=== PATIENT | male | born 1995 | race Caucasian/White ===

== ENCOUNTER 2016-07-13 12:58 | Inpatient (IN) | payer OTHER ==
[~2016-07-13] VITALS: Ht 170.2 cm; Wt 66.8 kg
[2016-07-13 14:43] LABS: HEMATOCRIT 42.7 % (38.0-50.0); MCH 28.4 PG (29.0-34.0); MCHC 35.8 G/DL (30.0-36.0); MCV 79.2 FL (86-99); MEAN PLAT.VOLUME 10.7 uM^3 (9.0-12.4); PLATELET COUNT 277 K/uL (156-360); RBC DIS.WIDTH-CV 12.5 % (11.8-14.6); RBC DIS.WIDTH-SD 35.9 % (39-53); RED BLOOD COUNT 5.39 M/uL (4.00-5.50); WHITE BLOOD COUNT 10.6 K/uL (4.1-10.2)
[2016-07-13 14:44] LABS: CHLORIDE 107 mEq/L (99-109); POTASSIUM 3.9 mEq/L (3.7-5.4); SODIUM 140 mEq/L (136-147)
[2016-07-13 14:45] LABS: GLUCOSE 370 mg/dL (70-99)
[2016-07-13 14:47] LABS: ANION GAP 10 MEQ/L (2-14)
[2016-07-13 14:49] LABS: GFR ESTIMATE (CALCULATED) > 59 mL/min/; SERUM ETHYL ALCOHOL < 10 mg/dL
[2016-07-13 14:50] LABS: UREA NITROGEN (BUN) 12 mg/dL (9-23)
[2016-07-13] MEDS ORDERED: INSULIN PUMP SCCONT (16:43)
[2016-07-13 18:29] LABS: POINT-OF-CARE METER ID UU13113702
[2016-07-13 18:45] LABS: AMPHETAMINE NEGATIVE (500 ng/mL); BARBITURATES NEGATIVE (200 ng/mL); BENZODIAZEPINES NEGATIVE (150 ng/mL); COCAINE NEGATIVE (150 ng/mL); INTERNAL CONTROLS VALID? YES; METHADONE NEGATIVE (200 ng/mL); METHAMPHETAMINE NEGATIVE (500 ng/mL); OPIATES (MORPHINE) NEGATIVE (100 ng/mL); OXYCODONE NEGATIVE (100 ng/mL); PHENCYCLIDINE NEGATIVE (25 ng/mL); PROPOXYPHENE NEGATIVE (300 ng/mL); THC CANNABINOIDS NEGATIVE (50 ng/mL); TRICYCLIC ANTIDEPRESSANTS NEGATIVE (300 ng/mL)
[2016-07-13 19:12] LABS: POINT-OF-CARE METER ID UU13113702; POINT-OF-CARE USER ID 515033160
[2016-07-13 20:28] VITALS: BP 110/63
[2016-07-14 06:43] LABS: POINT-OF-CARE METER ID UU13113830; POINT-OF-CARE USER ID BHSMSB
[2016-07-14 08:05] VITALS: BP 109/59
[2016-07-14 08:24] LABS: POINT-OF-CARE METER ID UU13113830; POINT-OF-CARE USER ID BHSMSB
[2016-07-14 09:22] LABS: POINT-OF-CARE METER ID UU13113830
[2016-07-14 10:16] LABS: POINT-OF-CARE METER ID UU13113830
[2016-07-14 12:14] LABS: POINT-OF-CARE METER ID UU13113830
[2016-07-14 15:55] VITALS: BP 116/71
[2016-07-14 16:42] LABS: POINT-OF-CARE METER ID UU13113830
[2016-07-15 06:17] LABS: POINT-OF-CARE METER ID UU13113830; POINT-OF-CARE USER ID BHSMEW
[2016-07-15 07:52] VITALS: BP 119/76
[2016-07-15 10:21] LABS: Estimated Average Glucose 352 mg/dL (70-123); HEMOGLOBIN A1c (GLYCOHEMOGLOB) 13.9 % HGB (Below 5.7)
[2016-07-15 10:52] LABS: POINT-OF-CARE METER ID UU13113830
[2016-07-15 11:52] LABS: POINT-OF-CARE METER ID UU13113830; POINT-OF-CARE USER ID BHSTSA
[2016-07-15 15:29] VITALS: BP 115/74
[2016-07-15 16:45] LABS: POINT-OF-CARE METER ID UU13113830; POINT-OF-CARE USER ID BHSTSA
[2016-07-15 21:21] LABS: POINT-OF-CARE METER ID UU13113830; POINT-OF-CARE USER ID ENVTLS63
[2016-07-16 06:14] LABS: POINT-OF-CARE METER ID UU13113830; POINT-OF-CARE USER ID ENVTLS63
[2016-07-16 09:43] VITALS: BP 119/79
[2016-07-16] MEDS ORDERED: SERTRALINE HCL25 MG PO (09:46)
[2016-07-16] MEDS ORDERED: NOVOLOG PE100 UNITS/ SC (09:46)
[2016-07-16] MEDS ORDERED: LEVEMIR100 UNIT/2 SC (09:46)
[2016-07-16 10:08] LABS: POINT-OF-CARE METER ID UU13113830; POINT-OF-CARE USER ID HRSENV50
[2016-07-16 12:08] LABS: POINT-OF-CARE METER ID UU13113830
== END 2016-07-16 13:10 | disposition home or self-care (01) | DRG 885 ==
LOC: EME 12:58 → 1WEST 15:50 → EDOF 15:50 → 1WEST 20:24
PROVIDERS: Emergency Medicine; Nurse Practitioner Family; Psychiatry & Neurology Psychiatry
DX: F33.2 Major depressive disorder, recurrent severe without psychotic features (principal); T43.212A Poisoning by selective serotonin and norepinephrine reuptake inhibitors, intentional self-harm, initial encounter; E10.9 Type 1 diabetes mellitus without complications; F17.210 Nicotine dependence, cigarettes, uncomplicated; Z79.4 Long term (current) use of insulin
CPT/HCPCS: 80048; 82948; 83036; 85027; 90839; 93005; 97150 GO; 97165 GO; 99281; 99285; G0480; J1815; J7030; Q0177